=== PATIENT | male | born 1990 | race Caucasian/White ===

== ENCOUNTER 2020-06-08 12:58 | Emergency (ER) | payer SELFPAY ==
[2020-06-08 13:09] VITALS: BP 120/78; PULSE 118; RESP 16; TEMP 37.1; O2SAT 95; BMI 25.4
[2020-06-08 14:16] LABS: Basophils % 0.3 %; Eosinophils % 0.2 %; Hemoglobin 15.9 g/dL (11.7-16.6); Lymphocytes # 2.3 10^3/uL (0.8-4.8); Lymphocytes % 16.6 %; Mean Corpuscular HGB Conc 33.8 g/dL (30.0-36.0); Mean Corpuscular Hemoglobin 29.2 pg (28.0-34.0); Mean Corpuscular Volume 86.4 fL (80-94); Mean Platelet Volume 10.7 fL (7.4-10.4); Monocytes # 0.9 10^3/uL (0.2-0.9); Monocytes % 6.7 %; Neutrophils # 10.57 10^3/uL (1.8-7.7); Neutrophils % 75.8 %; Nucleated Red Blood Cells % 0 %; Platelet Count 309 10^3/cmm (130-400); Red Blood Count 5.44 10^6/uL (4.1-5.3); Red Cell Distribution Width 13.2 % (12.1-15.1)
[2020-06-08 14:32] LABS: Alanine Aminotransferase 13 U/L (0-41); Albumin Level 5.8 g/dL (3.5-5.2); Alkaline Phosphatase 75 IU/L (40-130); Anion Gap 18.4 (5-19); Aspartate Amino Transferase 19 U/L (0-40); Blood Urea Nitrogen 23 mg/dL (6-20); Calcium 10.4 mg/dL (8.5-10.5); Carbon Dioxide 26 mmol/L (22-29); Chloride 95 mmol/L (98-107); Globulin 3.1 g/dL (1.3-4.6); Glomerular Filtration Rate 59.9 mL/min (90-130); Glucose 134 mg/dL (65-115); Lipase 43 U/L (13-60); Osmolality Calculated 281 mOsm/kg (285-295); Potassium 3.4 mmol/L (3.5-5.1); Sodium 136 mmol/L (136-145); Total Bilirubin 0.9 mg/dL (0.15-1.2); Total Protein 8.9 g/dL (6.6-8.7)
--- NOTE | 2020-06-08 15:18 | ED_ITS ---
HPI - Dizziness General: Chief Complaint: Dizziness Stated Complaint: dehydrated Time Seen by Provider: 06/08/20 14:57 History of Present Illness: HPI Narrative: 29-year-old male in with concerns of dehydration and heat exhaustion and heat related illness. He worked outside yesterday and got overheated and he hasn't felt well ever since. He said very little urination during the past 24 hours. The patient generally feels weak and nauseated. He denies any vomiting or temperature elevation. Patient has a mild headache but otherwise doesn't have any other complaints. MD elicited complaint: lightheadedness and near syncope Review of Systems General: Reports: 10 or more systems reviewed and unremarkable except in HPI a nd below Physical Exam Const: COMMON NORMALS: no acute distress, average body habitus, patient orient ed x3, no limitations, healthy appearing, alert and well nourished HENMT: COMMON NORMALS: normocephalic HEAD & SCALP: normocephalic Eye: COMMON NORMALS: Equal, round and reactive pupils present, EOMs intact bilaterally and conjunctivae normal CONJUNCTIVA: Yes conjunctivae normal PUPIL: Yes Equal, round and reactive pupils present Neck/C-Spine: COMMON NORMALS: full ROM, no lymphadenopathy, supple, no meningeal signs, no JVD, Thyroid normal and No carotid bruits THYROID: Thyroid normal Chest: COMMONS NORMALS: normal inspection of the chest and normal palpation of entire chest wall Resp: COMMON NORMALS: normal respiratory effort, No retractions, No use of accessory muscles, clear to auscultation bilaterally and percussion normal AUSCULTATION: clear to auscultation bilaterally PERCUSSION: percussion normal Cardio: COMMON NORMALS: no JVD GI: COMMON NORMALS: Normal to inspection, nondistended, normoactive bowel sounds present, Soft to palpation, non-tender, No hepatosplenomegaly present, no masses and no bruits PALPATION: Yes Soft to palpation and Yes No hepatosplenomegaly present : COMMON NORMALS: Yes no CVA tenderness BLADDER/KIDNEY EXAM: Yes no CVA tenderness Back/Pelvis: COMMON NORMALS: no CVA tenderness Extremity: COMMON NORMALS: normal to inspection, full ROM, capillary refill normal, no joint enlargement, no clubbing, cyanosis or edema, no calf tenderness and no pedal edema Neuro: COMMON NORMALS: patient oriented x3 SENSORIUM/ORIENTATION: Yes alert MENINGEAL SIGNS: Yes no meningeal signs Skin: COMMON NORMALS: no rashes or lesions noted, no wounds, turgor normal, no jaundice, no petechiae and no mottling GENERAL SKIN EXAM: no rashes or lesions noted and turgor normal Course Vital Signs: Vital signs: Vital Signs Temperature 98.8 F 06/08/20 13:09 Pulse Rate 88 06/08/20 16:31 Respiratory Rate 15 06/08/20 16:31 Blood Pressure 117/97 06/08/20 16:31 Pulse Oximetry 99 06/08/20 16:31 MDM - Dizziness MDM Narrative: Medical decision making narrative: discussed differential diagnosis that includes heat related illness recommended some routine labs sent IV fluids and recheck. patient feels much better after intervention in the emergency department. His labs are consistent with a heat-related illness. Recommend routine follow-up his vital signs improved significantly. He should probably take tomorrow off of work as well and then talk about the planned work safely in this heat. Lab Data: Labs: Lab Results 06/08/20 06/08/20 06/08/20 Range/Units 14:04 14:04 14:04 WBC 14.0 H (4.0-10.0) 10^3/ uL RBC 5.44 H (4.1-5.3) 10^6/u L Hgb 15.9 (11.7-16.6) g/dL Hct 47.0 (42.0-52.0) % MCV 86.4 (80-94) fL MCH 29.2 (28.0-34.0) pg MCHC 33.8 (30.0-36.0) g/dL RDW 13.2 (12.1-15.1) % Plt Count 309 (130-400) 10^3/c mm MPV 10.7 H (7.4-10.4) fL Neut % (Auto) 75.8 % Lymph % (Auto) 16.6 % [place] % (Auto) 6.7 % Eos % (Auto) 0.2 % Baso % (Auto) 0.3 % Neut # (Auto) 10.57 H (1.8-7.7) 10^3/u L Lymph # (Auto) 2.3 (0.8-4.8) 10^3/u L [place] # (Auto) 0.9 (0.2-0.9) 10^3/u L Eos # (Auto) 0.0 (0.0-0.8) 10^3/u L Baso # (Auto) 0.0 (0.0-0.1) 10^3/u L Nucleated RBC % (a uto) 0 % Nucleated RBCs # 0.0 /100WBC Sodium 136 135 L (136-145) mmol/L Potassium 3.4 L 3.4 L (3.5-5.1) mmol/L Chloride 95 L 94 L (98-107) mmol/L Carbon Dioxide 26 25 (22-29) mmol/L Anion Gap 18.4 19.4 H (5-19) BUN 23 H 23 H (6-20) mg/dL Creatinine 1.4 H 1.5 H (0.7-1.2) mg/dL GFR Calculation 59.9 L 55.3 L (90-130) mL/min Glucose 134 H 131 H (65-115) mg/dL Calculated Osmolal ity 281 L 279 L (285-295) mOsm/k g Calcium 10.4 10.4 (8.5-10.5) mg/dL Total Bilirubin 0.9 (0.15-1.2) mg/dL AST 19 (0-40) U/L ALT 13 (0-41) U/L Alkaline Phosphata se 75 (40-130) IU/L Total Protein 8.9 H (6.6-8.7) g/dL Albumin 5.8 H (3.5-5.2) g/dL Globulin 3.1 (1.3-4.6) g/dL Lipase 43 (13-60) U/L Urine Color (Yellow) Urine Appearance (CLEAR) Urine pH (5-7) Ur Specific Gravit y (1.005-1.030) Urine Protein (Negative) Urine Glucose (UA) (Normal) Urine Ketones (Negative) Urine Blood (Negative) Urine Nitrate (Negative) Urine Bilirubin (NEGATIVE) Urine Urobilinogen (Negative) mg/dL Ur Leukocyte Shilpa ase (Negative) Urine RBC (0-2) /hpf Urine WBC (0-5) /hpf Ur Squamous Epith Cells (0-5) Amorphous Sediment Urine Bacteria (NONE) Hyaline Casts Urine Mucus 06/08/20 Range/Units 15:45 WBC (4.0-10.0) 10^3/ uL RBC (4.1-5.3) 10^6/u L Hgb (11.7-16.6) g/dL Hct (42.0-52.0) % MCV (80-94) fL MCH (28.0-34.0) pg MCHC (30.0-36.0) g/dL RDW (12.1-15.1) % Plt Count (130-400) 10^3/c mm MPV (7.4-10.4) fL Neut % (Auto) % Lymph % (Auto) % [place] % (Auto) % Eos % (Auto) % Baso % (Auto) % Neut # (Auto) (1.8-7.7) 10^3/u L Lymph # (Auto) (0.8-4.8) 10^3/u L [place] # (Auto) (0.2-0.9) 10^3/u L Eos # (Auto) (0.0-0.8) 10^3/u L Baso # (Auto) (0.0-0.1) 10^3/u L Nucleated RBC % (a uto) % Nucleated RBCs # /100WBC Sodium (136-145) mmol/L Potassium (3.5-5.1) mmol/L Chloride (98-107) mmol/L Carbon Dioxide (22-29) mmol/L Anion Gap (5-19) BUN (6-20) mg/dL Creatinine (0.7-1.2) mg/dL GFR Calculation (90-130) mL/min Glucose (65-115) mg/dL Calculated Osmolal ity (285-295) mOsm/k g Calcium (8.5-10.5) mg/dL Total Bilirubin (0.15-1.2) mg/dL AST (0-40) U/L ALT (0-41) U/L Alkaline Phosphata se (40-130) IU/L Total Protein (6.6-8.7) g/dL Albumin (3.5-5.2) g/dL Globulin (1.3-4.6) g/dL Lipase (13-60) U/L Urine Color Rose[place] (Yellow) Urine Appearance Sl cloudy A (CLEAR) Urine pH 5 (5-7) Ur Specific Gravit y 1.030 (1.005-1.030) Urine Protein 1+ H (Negative) Urine Glucose (UA) Norm (Normal) Urine Ketones 1+ H (Negative) Urine Blood Neg (Negative) Urine Nitrate Negative (Negative) Urine Bilirubin 1+ H (NEGATIVE) Urine Urobilinogen 4 H (Negative) mg/dL Ur Leukocyte Shilpa ase Negative (Negative) Urine RBC None (0-2) /hpf Urine WBC 0-4 H (0-5) /hpf Ur Squamous Epith Cells None (0-5) Amorphous Sediment Not Reportable Urine Bacteria 1+ H (NONE) Hyaline Casts 15-25 H Urine Mucus 3+ Discharge Plan Discharge Patient Disposition: Home, Self-Care Clinical Impression: Heat exhaustion Qualifiers: Encounter type: initial encounter Qualified Code(s): T67.5XXA - Heat e xhaustion, unspecified, initial encounter Condition: Stable Prescriptions: No Action No Known Home Medications RF: 0 Discharge Orders: Discharge Order (Routine); Ordered 06/08/20 Ordered By: Angel Gannon Discharge Diet: As Directed Discharge Activity: Increase activity as tolerated Patient Instructions: Heat Exhaustion (ED) Coding Level of Care Code ED Still Operator Batch Or Continuous for Luz Marina Fwd Exam Comprehensive
[2020-06-08 15:31] VITALS: BP 114/96; PULSE 72; RESP 17; O2SAT 98
[2020-06-08] MEDS: sodium chloride 0.9% 1,000 ML 999 ML IV (15:36)
[2020-06-08 15:56] LABS: Anion Gap 19.4 (5-19); Blood Urea Nitrogen 23 mg/dL (6-20); Calcium 10.4 mg/dL (8.5-10.5); Carbon Dioxide 25 mmol/L (22-29); Chloride 94 mmol/L (98-107); Glomerular Filtration Rate 55.3 mL/min (90-130); Glucose 131 mg/dL (65-115); Osmolality Calculated 279 mOsm/kg (285-295); Potassium 3.4 mmol/L (3.5-5.1); Sodium 135 mmol/L (136-145)
[2020-06-08 16:31] VITALS: BP 117/97; PULSE 88; RESP 15; O2SAT 99
[2020-06-08 16:31] LABS: Add Urine Microscopic? YES; Bilirubin Urine 1+ (NEGATIVE); Blood Urine Neg (Negative); Glucose Urine UA Norm (Normal); Ketones Urine 1+ (Negative); Leukocyte Esterase Urine Negative (Negative); Nitrate Urine Negative (Negative); Protein Urine 1+ (Negative); Urine Color Amber (Yellow); Urobilinogen Urine 4 mg/dL (Negative); pH Urine 5 (5-7)
[2020-06-08 16:33] LABS: Add Urine Culture? No; Bacteria Urine 1+; Hyaline Casts Urine 15-25; Mucus Urine 3+; WBC Urine 0-4 /hpf (0-5)
[2020-06-08 16:48] VITALS: BP 117/97; PULSE 88; RESP 15; O2SAT 99
[2020-06-10 19:31] LABS: Myoglobin Qualitative Urine <28 mcg/L (<28)
== END 2020-06-08 16:48 | disposition home or self-care (01) ==
PROVIDERS: Nurse Practitioner Family; Emergency Provider Family Medicine
DX: T67.5XXA Heat exhaustion, unspecified, initial encounter (principal); X30.XXXA Exposure to excessive natural heat, initial encounter
CPT/HCPCS: 12345; 80048; 80053; 81001; 81003; 83690; 83874; 85025; 96360; 99283; J7030

== ENCOUNTER 2020-07-20 12:35 | Emergency (ER) | payer SELFPAY ==
[2020-07-20 12:38] VITALS: BP 132/92; PULSE 79; RESP 20; TEMP 37.1; O2SAT 100; BMI 25.8
--- NOTE | 2020-07-20 12:41 | ECG_ITS ---
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 Measurements Intervals [place] Rate: 62 P: 62 AL: 187 QRS: 73 QRSD: 101 T: 53 QT: 400 QTc: 407 Interpretive Statements SINUS RHYTHM No previous ECG available for comparison Electronically Signed On 07-21-2020 20:29:56 CDT by Rae Bernstein M.D. [id number] f
--- NOTE | 2020-07-20 12:42 | ED_ITS ---
HPI - General Adult General: Chief complaint: Abdominal Pain Stated complaint: POSSIBLE HEAT EXHAUSTION Time Seen by Provider: 07/20/20 12:36 Source: patient and EMS Mode of arrival: EMS Limitations: no limitations History of Present Illness: HPI narrative: Jose is a nice 29-year-old male who comes in complaining of heat exhaustion. Patient states he was out in the heat for 5 hours 2 days ago and has not recovered since. He is try to stay on side and take oral fluids but today he had significant nausea and vomiting with trying to eat or drink anything. He denies any abdominal pain, fever, but does have significant muscle cramps and aches. Patient has had heat exhaustion before, last May. He states the symptoms feel almost exactly like those did at that time. Patient states he just cannot seem to get over this as quickly as he did before. He denies any focal weakness but globalized weakness is present. The patient states that if he tries to get up and walk or do anything physically exerting or eat or drink his nausea and vomiting and muscle aches and pains are made worse. Other than trying to stay cool and drink lots of fluids the patient denies any other treatments at home. Associated symptoms: Reports malaise, nausea and vomiting; Deny chest pain, confusion, diaphoresis, dyspnea, headache(s), rash, palpitations or syncope Review of Systems Const: Reports: body aches, fatigue and malaise; Denies: fever(s), chills or diaphoresis Eyes: Denies: change in vision, blurry vision, photophobia, eye discomfort, eye discharge or eye redness ENMT: Denies: throat pain, odynophagia, hoarseness, swelling of lips/tongue, ear or mastoid pain, ear discharge, change in hearing or nasal discharge Card: Denies: chest pain, palpitations, irregular heart rhythm, edema, lightheadedness, syncope, pre-syncope, dyspnea on exertion or orthopnea Resp: Denies: dyspnea, productive cough, non-productive cough, wheezing, hemoptysis or chest congestion GI: Reports: nausea and vomiting; Denies: abdominal pain, hematemesis, coffee ground emesis, heartburn, diarrhea, constipation, GI cramping, hematochezia or melena : Denies: flank pain, dysuria, urinary frequency, urinary urgency or hematuria Musc: Denies: neck pain, back pain, extremity pain, extremity swelling, joint pain, joint swelling, joint redness, joint warmth or joint stiffness Skin/Breast: Denies: rash, pruritus, erythema or skin tenderness Neuro: Denies: headache(s), numbness in extremities, weakness in extremities, sensory changes, lack of coordination, difficulty walking, dizziness, vertigo, confusion, Slurred speech present or seizure-like activity Kavon/Lymph: Denies: easy bruising, easy bleeding, petechiae, purpura or enlarged lymph nodes All/Imm: Denies: urticaria, throat swelling, tongue swelling, facial swelling or acute wheezing PFSH ED PFSH: Medical History (Updated 07/20/20 @ 15:41 by Licha Muñiz) No pertinent past medical history Surgical History (Updated 07/20/20 @ 12:45 by Licha Muñiz) S/P appendectomy Social History (Updated 07/20/20 @ 16:29 by Licha Muñiz) Substance/Drug Use: current Substance/Drug use frequency: daily Substance/Drug use type: Marijuana Physical Exam Const: COMMON NORMALS: no acute distress, patient oriented x3, no limitations, healthy appearing and well nourished GENERAL APPEARANCE: cooperative, well kempt and well developed HENMT: COMMON NORMALS: normocephalic, atraumatic, external ears normal, EAC's normal and Normal external nose present HEAD & SCALP: normal to inspection, normocephalic and atraumatic FACE & SINUS: normal facial exam and face symmetric NOSE: Normal external nose present and Normal nares present EXTERNAL EAR: Yes external ears normal EXTERNAL AUDITORY CANAL: EAC's normal MOUTH: Normal oral and palatal mucosa present, lip normal and tongue normal Eye: COMMON NORMALS: Equal, round and reactive pupils present and conjunctivae normal GENERAL EYE: appearance normal, both eyes and all related structures ALIGNMENT: Yes alignment normal PERIORBITAL: periorbital findings normal EYELID: eyelids normal CONJUNCTIVA: Yes conjunctivae normal SCLERA: sclerae normal PUPIL: Yes Equal, round and reactive pupils present Neck/C-Spine: COMMON NORMALS: full ROM, no lymphadenopathy, supple, no meningeal signs and no JVD GENERAL: Yes normal visual inspection and Yes trachea midline Chest: COMMONS NORMALS: normal inspection of the chest and normal palpation of entire chest wall Resp: COMMON NORMALS: normal respiratory effort, No retractions, No use of accessory muscles and clear to auscultation bilaterally EFFORT & INSPECTION: Yes able to speak in complete sentences and Yes symmetric chest movement AUSCULTATION: clear to auscultation bilaterally, no crackles, no rales, no rhonchi and no wheezes Cardio: COMMON NORMALS: no JVD, regular rate, regular rhythm, S1 normal heart sound present and S2 normal heart sound present RATE: regular rate RHYTHM: regular rhythm HEART SOUNDS: S1 normal heart sound present, S2 normal heart sound present, no click, no gallops, no murmurs, no rubs and abnormal split S2 GI: COMMON NORMALS: Soft to palpation and No hepatosplenomegaly present PALPATION: Yes Soft to palpation, No Tenderness to palpation present (GI), No Guarding due to palpation present (GI), No Rigid due to palpation, Yes No hepatosplenomegaly present, No Hernia present, No Palpable mass present and No Pulsatile mass present : COMMON NORMALS: Yes no CVA tenderness BLADDER/KIDNEY EXAM: Yes no CVA tenderness Back/Pelvis: COMMON NORMALS: no CVA tenderness, thoracic and lumbar spine normal to inspection, no thoracic nor lumbar tenderness and thoraco-lumbar ROM normal Extremity: COMMON NORMALS: normal to inspection, full ROM, capillary refill normal, no joint enlargement, no clubbing, cyanosis or edema and no calf tenderness Neuro: COMMON NORMALS: patient oriented x3, CN's II-XII intact bilaterally, moves all extremities, no focal motor deficits and no sensory deficits noted MENINGEAL SIGNS: Yes no meningeal signs SPEECH: speech normal Psych: COMMON NORMALS: mental status grossly normal, Normal thought process present, cooperative, normal affect, speech normal and activity/motor behavior normal APPEARANCE: Yes well kempt SPEECH: Yes normal speech THOUGHT PROCESS: Normal thought process present Skin: COMMON NORMALS: no rashes or lesions noted, turgor normal, no jaundice, no petechiae and no mottling GENERAL SKIN EXAM: no rashes or lesions noted and turgor normal Course Vital Signs: Vital signs: Vital Signs Temperature 98.7 F 07/20/20 15:57 Pulse Rate 78 07/20/20 15:57 Respiratory Rate 18 07/20/20 15:57 Blood Pressure 144/84 07/20/20 15:57 Pulse Oximetry 100 07/20/20 15:57 MDM - General Adult MDM Narrative: Medical decision making narrative: Jose is a nice 29-year-old male who comes in with generalized malaise some muscle cramping after he was out in the heat for 5+ hours on Friday. He states resting at home has not helped and he has been sick to his stomach and vomiting so he cannot keep fluids down. Patient denies any fevers, focal neurologic deficits or otherwise. Denies any abdominal pain but he states anytime he tries to eat or drink he then begins to vomit. Here after IV fluids and antiemetics he has been able to keep fluids down without vomiting. His ultrasound of his gallbladder and kidneys is unrevealing. The patient does not complain of flank pain, dysuria or suprapubic abdominal pain. I will go ahead and treat him for his UTI nonetheless. The patient does not appear septic to me. I believe he can go home although I have offered him admission to be careful the patient declines and is insisting upon discharge Lab Data: Attestation: I reviewed the patient's lab results. Labs: Lab Results 07/20/20 07/20/20 07/20/20 Range/Units 12:51 12:51 13:30 WBC 14.1 H (4.0-10.0) 10^3/ uL RBC 5.48 H (4.1-5.3) 10^6/u L Hgb 15.7 (11.7-16.6) g/dL Hct 46.0 (42.0-52.0) % MCV 83.9 (80-94) fL MCH 28.6 (28.0-34.0) pg MCHC 34.1 (30.0-36.0) g/dL RDW 12.7 (12.1-15.1) % Plt Count 297 (130-400) 10^3/c mm MPV 11.5 H (7.4-10.4) fL Neut % (Auto) 79.3 % Lymph % (Auto) 10.6 % [place] % (Auto) 9.1 % Eos % (Auto) 0.3 % Baso % (Auto) 0.4 % Neut # (Auto) 11.19 H (1.8-7.7) 10^3/u L Lymph # (Auto) 1.5 (0.8-4.8) 10^3/u L [place] # (Auto) 1.3 H (0.2-0.9) 10^3/u L Eos # (Auto) 0.0 (0.0-0.8) 10^3/u L Baso # (Auto) 0.1 (0.0-0.1) 10^3/u L Nucleated RBC % (a uto) 0 % Nucleated RBCs # 0.0 /100WBC Sodium 135 L (136-145) mmol/L Potassium 3.2 L (3.5-5.1) mmol/L Chloride 93 L (98-107) mmol/L Carbon Dioxide 27 (22-29) mmol/L Anion Gap 18.2 (5-19) BUN 35 H (6-20) mg/dL Creatinine 1.8 H (0.7-1.2) mg/dL GFR Calculation 44.8 L (90-130) mL/min Glucose 121 H (65-115) mg/dL Calculated Osmolal ity 279 L (285-295) mOsm/k g Calcium 9.8 (8.5-10.5) mg/dL Magnesium 2.1 (1.7-2.3) mg/dL Total Bilirubin 1.5 H (0.15-1.2) mg/dL AST 29 (0-40) U/L ALT 25 (0-41) U/L Alkaline Phosphata se 77 (40-130) IU/L Creatine Kinase 306 (39-308) U/L Total Protein 8.5 (6.6-8.7) g/dL Albumin 4.9 (3.5-5.2) g/dL Globulin 3.6 (1.3-4.6) g/dL Urine Color Yellow (Yellow) Urine Appearance Sl hazy (CLEAR) Urine pH 5 (5-7) Ur Specific Gravit y 1.020 (1.005-1.030) Urine Protein 1+ H (Negative) Urine Glucose (UA) Norm (Normal) Urine Ketones 2+ H (Negative) Urine Blood 2+ H (Negative) Urine Nitrate Negative (Negative) Urine Bilirubin 1+ H (NEGATIVE) Urine Urobilinogen 4 H (Negative) mg/dL Ur Leukocyte Shilpa ase 1+ H (Negative) Urine RBC 0-4 H (0-2) /hpf Urine WBC 10-15 H (0-5) /hpf Ur Squamous Epith Cells 0-4 H (0-5) Ur Transition Epit h Cell 0-4 /hpf Amorphous Sediment Not Reportable Urine Bacteria 2+ H (NONE) Hyaline Casts 5-10 H Urine Mucus 2+ Imaging Data^: US Abdomen: Radiologist's impression: [address] [place] [address] Ultrasound Report Signed Patient: Jose Chowdhury Unit #: [id number] : 1990 Age/Sex: 29 / M ADM Date: 07/20/20 Loc: ER Room/Bed: Attending Dr: Ordering Provider/Ordering MD: Licha Muñiz DO Date of Service: 07/20/20 Procedure(s): US abdomen complete* [id number] Accession Number(s): [id number] Report Number: [id number] WS: [id number] Abdomen ultrasound, 07/20/2020 Clinical Data: Abdominal Pain Comparison: None. Findings: The pancreas shows no cyst, pseudocyst or evidence of pancreatitis. The liver shows no cysts, masses or dilated intrahepatic ducts. The liver measured 12.5 cm in greatest diameter. The gallbladder has no stones or sludge. The wall measures 0.2 cm with no pericholecystic fluid. The common bile duct is 0.4 cm and no intraductal abnormalities are noted. The right kidney is 13.7 cm. No cysts, masses or hydronephrosis is seen. The left kidney is 12.4 cm. No cysts, masses or hydronephrosis is seen. The abdominal aorta is not dilated and the inferior vena cava has normal flow. No vascular abnormalities are seen. The spleen measures 10.6 cm and there are no intrasplenic masses or capsular abnormalities. US/US abdomen complete* [id number] Impression: Negative abdomen ultrasound. Dictated By: Manasa Figueroa MD Signed By: Manasa Figueroa MD Signed Date/Time: 07/20/201456 DD/ 54 EKG Data^: EKG 1: Attestation: I personally reviewed and interpreted this EKG as follows: EKG interpretation date: 07/20/20 EKG interpretation time: 12:47 Interpretation: Normal sinus rhythm at 62 beats a minute, no acute ST or T wave changes. No blocks, normal intervals. Computer generated interpretation: Abdomen Ultrasound 07/20/20 14:31 Impression: Negative abdomen ultrasound. Discharge Plan Discharge Patient Disposition: Home Clinical Impression: Acute UTI Heat exhaustion Qualifiers: Encounter type: initial encounter Qualified Code(s): T67.5XXA - Heat exhaustion, unspecified, initial encounter Condition: Stable Prescriptions: New Zofran 4 mg tablet 4 mg PO Q6H PRN (Reason: nausea and vomiting) Qty: 20 RF: 0 cefdinir 300 mg capsule 300 mg PO Q12H 10 Days Qty: 20 RF: 0 Discharge Orders: Discharge Order (Routine); Ordered 07/20/20 Ordered By: Licha Muñiz Referrals: Licha Muñiz [Emergency Provider] - 1-3 days (Return here to the ER to have your kidney function checked on Friday. He can also follow-up at the [facility] urgent care and [place] as you have requested but if for any reason they are unable to see you please return here for recheck.) Discharge Diet: Advance as tolerated Discharge Activity: Increase activity as tolerated Patient Instructions: Urinary Tract Infection in Men (ED), Heat Exhaustion (ED) Activity Restrictions/Additional Instructions: Please return to the ER immediately for any of the signs or symptoms listed on your discharge instruction sheets, worsening/changing of your symptoms, you are not getting better as quickly as expected, or for ANY other cause or concerns. Push water, Gatorade, Powerade or whatever you would like to drink except alcohol. You need to be urinating at least every 2-4 hours. I have recommended and offered admission for further evaluation and treatment of your acute kidney injury and your UTI but you have declined. If you change your mind, your symptoms change or worsen, you develop a fever, you continue to vomit, or have any other symptoms please return to the ER immediately for recheck. Discharge Date/Time: 07/20/20 15:58 Coding Level of Care Code ED Commercial Field Inspector for Luz Marina Fwd Exam Comprehensive
[2020-07-20 13:26] LABS: Basophils # 0.1 10^3/uL (0.0-0.1); Basophils % 0.4 %; Eosinophils % 0.3 %; Hemoglobin 15.7 g/dL (11.7-16.6); Lymphocytes # 1.5 10^3/uL (0.8-4.8); Lymphocytes % 10.6 %; Mean Corpuscular HGB Conc 34.1 g/dL (30.0-36.0); Mean Corpuscular Hemoglobin 28.6 pg (28.0-34.0); Mean Corpuscular Volume 83.9 fL (80-94); Mean Platelet Volume 11.5 fL (7.4-10.4); Monocytes # 1.3 10^3/uL (0.2-0.9); Monocytes % 9.1 %; Neutrophils # 11.19 10^3/uL (1.8-7.7); Neutrophils % 79.3 %; Nucleated Red Blood Cells % 0 %; Platelet Count 297 10^3/cmm (130-400); Red Blood Count 5.48 10^6/uL (4.1-5.3); Red Cell Distribution Width 12.7 % (12.1-15.1); White Blood Count 14.1 10^3/uL (4.0-10.0)
[2020-07-20 13:29] VITALS: BP 132/70; PULSE 72; RESP 18; O2SAT 98
[2020-07-20] MEDS: ondansetron 2 mg/ML SDV 2 mL 4 MG IVP ×2 (13:32→14:56)
[2020-07-20] MEDS: sodium chloride 0.9% 1,000 ML 999 ML IV ×3 (13:34→14:56)
[2020-07-20 13:38] LABS: Alanine Aminotransferase 25 U/L (0-41); Albumin Level 4.9 g/dL (3.5-5.2); Alkaline Phosphatase 77 IU/L (40-130); Anion Gap 18.2 (5-19); Aspartate Amino Transferase 29 U/L (0-40); Blood Urea Nitrogen 35 mg/dL (6-20); Calcium 9.8 mg/dL (8.5-10.5); Carbon Dioxide 27 mmol/L (22-29); Chloride 93 mmol/L (98-107); Creatine Phosphokinase 306 U/L (39-308); Globulin 3.6 g/dL (1.3-4.6); Glomerular Filtration Rate 44.8 mL/min (90-130); Glucose 121 mg/dL (65-115); Magnesium 2.1 mg/dL (1.7-2.3); Osmolality Calculated 279 mOsm/kg (285-295); Potassium 3.2 mmol/L (3.5-5.1); Sodium 135 mmol/L (136-145); Total Bilirubin 1.5 mg/dL (0.15-1.2); Total Protein 8.5 g/dL (6.6-8.7)
[2020-07-20 14:07] LABS: Urine Appearance SL Hazy (CLEAR); Urine Color Yellow (Yellow); pH Urine 5 (5-7)
[2020-07-20 14:08] LABS: Add Urine Microscopic? YES; Bilirubin Urine 1+ (NEGATIVE); Blood Urine 2+ (Negative); Glucose Urine UA Norm (Normal); Ketones Urine 2+ (Negative); Leukocyte Esterase Urine 1+ (Negative); Nitrate Urine Negative (Negative); Protein Urine 1+ (Negative); Urobilinogen Urine 4 mg/dL (Negative)
[2020-07-20 14:22] LABS: Bacteria Urine 2+; RBC Urine 0-4 /hpf (0-2); Squamous Epithelial Cell Urine 0-4 (0-5); Transitional Epi Cells Urine 0-4 /hpf
[2020-07-20 14:23] LABS: Add Urine Culture? Yes; Mucus Urine 2+
[2020-07-20 14:29] VITALS: BP 144/70; PULSE 77; RESP 18; O2SAT 98
--- NOTE | 2020-07-20 14:31 | US_ITS ---
WS: [id number] Abdomen ultrasound, 07/20/2020 Clinical Data: Abdominal Pain Comparison: None. Findings: The pancreas shows no cyst, pseudocyst or evidence of pancreatitis. The liver shows no cysts, masses or dilated intrahepatic ducts. The liver measured 12.5 cm in greates t diameter. The gallbladder has no stones or sludge. The wall measures 0.2 cm with no pericholecystic fluid. The common bile duct is 0.4 cm and no intraductal abnormalities are noted. The right kidney is 13.7 cm. No cysts, masses or hydronephrosis is seen. The left kidney is 12.4 cm. No cysts, masses or hydronephrosis is seen. The abdominal aorta is not dilated and the inferior vena cava has normal flow. No vascular abnormalit ies are seen. The spleen measures 10.6 cm and there are no intrasplenic masses or capsular abnormalities. US/US abdomen complete* [id number] Impression: Negative abdomen ultrasound.
[2020-07-20 15:00] VITALS: RESP 18
--- NOTE | 2020-07-20 15:28 | PC.NURSE ---
patient given po fluids at this time
[2020-07-20] MEDS: potassium chloride oral liq 20 mEq/15 mL UDC 40 MEQ PO (15:34)
[2020-07-20] MEDS: cefTRIAXone 1,000 MG in sodium chloride 0.9% (plus) 50 ML 100 MG IV (15:34)
[2020-07-20 15:57] VITALS: BP 144/84; PULSE 78; RESP 18; TEMP 37.1; O2SAT 100
--- NOTE | 2020-07-20 16:01 | PC.NURSE ---
patient left prior to lactic draw
== END 2020-07-20 15:58 | disposition home or self-care (01) ==
PROVIDERS: Emergency Provider Emergency Medicine
DX: N39.0 Urinary tract infection, site not specified (principal); T67.5XXA Heat exhaustion, unspecified, initial encounter; X30.XXXA Exposure to excessive natural heat, initial encounter
CPT/HCPCS: 12345; 76700; 80053; 81001; 82550; 83735; 85025; 87086; 93005; 96360; 96361; 96365; 96375; 99283; 99284; J0696; J2405; J7030